=== PATIENT | female | born 2000 | race Caucasian/White ===

== ENCOUNTER 2022-06-11 08:31 | Day surgery (SDC) | payer MEDICAID ==
[~2022-06-11] VITALS: Ht 165.1 cm; Wt 83.9 kg
[2022-06-11 09:17] LABS: HCG,QUAL RESULT NEGATIVE (NEGATIVE)
[2022-06-11] MEDS ORDERED: MIDAZOLAM HCL 5 MG/5 ML VIAL ONE ×2 (09:23→09:37)
[2022-06-11] MEDS ORDERED: MEPERIDINE 50 MG/ML VIAL ONE (09:23)
[2022-06-11] MEDS ORDERED: DIPHENHYDRAMINE INJ 50 MG/ML VIAL ONE (09:33)
[2022-06-11 11:30] VITALS: BP_SYST 111
== END 2022-06-11 11:20 | disposition home or self-care (01) ==
LOC: EDSEX 08:31 → SDS 08:31 → SMU 09:10 → SDS 11:20
PROVIDERS: ATTEND Internal Medicine Gastroenterology
DX: R10.13 Epigastric pain (principal); K29.70 Gastritis, unspecified, without bleeding; K29.80 Duodenitis without bleeding; K21.9 Gastro-esophageal reflux disease without esophagitis; Z79.899 Other long term (current) drug therapy
CPT/HCPCS: 43239; 84703; 88305; 88312; 88313; 99152; G0378; J1200; J2250; J2175